=== PATIENT | female | born 1995 | race Two or more races ===

== ENCOUNTER 2018-07-28 20:40 | Inpatient (IN) | payer BC ==
[2018-07-28] MEDS ORDERED: DEXTROSE 5%-LACTATED RINGERS 500 ML IV ONE (21:00)
[2018-07-28] MEDS ORDERED: DEXTROSE 5%-LACTATED RINGERS 1,000 ML IV SCH (22:00)
[2018-07-28] MEDS ORDERED: ACETAMINOPHEN 325 MG TABLET (FP) ONE (22:44)
[2018-07-28] MEDS ORDERED: ACETAMINOPHEN 325 MG TABLET (FP) PO ONE (22:45)
[2018-07-29] MEDS ORDERED: ELECTROLYTE-148 SOLN 1,000 ML IV SCH ×2 (00:05→04:00)
[2018-07-29 00:35] LABS: BASO % 0.2 % (0-2.0); EOS % 0.2 % (0-4.5); HEMATOCRIT 35.8 % (32.4-45.2); HEMOGLOBIN 12.1 GM/dL (10.7-15.3); LYMPH % 11.9 % (8-40); MCH 29.1 pg (25.7-33.7); MCHC 33.9 g/dl (32.0-36.0); MEAN CELL VOLUME 85.7 fl (80-96); MONO % 3.7 % (3.8-10.2); PLATELET COUNT 159 K/MM3 (134-434); RBC 4.18 M/mm3 (3.60-5.2); RDW 13.8 % (11.6-15.6); WHITE BLOOD COUNT 13.6 K/mm3 (4.0-10.0)
[2018-07-29 00:47] LABS: INR 0.93 (0.83-1.09)
[2018-07-29] MEDS ORDERED: FENTANYL/BUPIVACAINE/NS/PF - PCEA - 50 ML DISP.SYRIN EP ONE (00:47)
[2018-07-29 00:50] LABS: ACTIVATED PTT 27.8 SECONDS (25.2-36.5)
[2018-07-29 00:55] LABS: ANION GAP 9 MMOL/L (8-16); BLOOD UREA NITROGEN 7 mg/dL (7-18); CALCIUM 8.6 mg/dL (8.5-10.1); CHLORIDE 107 mmol/L (98-107); CO2 20 mmol/L (21-32); CREATININE 0.4 mg/dL (0.55-1.3); GLUCOSE,RANDOM 109 mg/dL (74-106); POTASSIUM 4.1 mmol/L (3.5-5.1); SODIUM 136 mmol/L (136-145)
[2018-07-29] MEDS: FENTANYL/BUPIVACAINE/NS/PF - PCEA - 50 ML DISP.SYRIN EP SCH (01:00)
[2018-07-29] MEDS ORDERED: NALOXONE HCL 0.4 MG/ML VIAL IVPUSH PRN (02:11)
[2018-07-29 02:12] VITALS: BMI 34.2
[2018-07-29] MEDS ORDERED: DEXTROSE 5%-LACTATED RINGERS 1,000 ML IV SCH (04:00)
--- NOTE | 2018-07-29 04:01 | HP ---
Past Medical History - Admission Chief Complaint: Pain in labor History of Present Illness: 23 yo , @ 39 weeks gestation, admitted for labor pain. History Source: Patient Limitations to Obtaining History: No Limitations - Past Medical History ...: 1 ...Para: 0 ...Term: 0 ...: 0 ...Spon : 0 ...Induced : 0 ...Multiple Gestation: 0 ...LMP: 10/17/17 ... Weeks Gestation by Dates: 40.5 ...EDC by Dates: 07/24/18 ...EDC by Sono: 08/02/18 - Past Surgical History Past Surgical History: Yes: None Hx Myomectomy: No Hx Transabdominal Cerclage: No - Smoking History Smoking history: Never smoked - Alcohol/Substance Use Hx Alcohol Use: No - Social History Usual Living Arrangement: Yes: With Spouse History of Recent Travel: No Home Medications - Allergies Allergies/Adverse Reactions: Allergies Allergy/AdvReac Type Severity Reaction Status Date / Time No Known Drug Allergies Allergy Verified 07/28/18 22:19 Family Disease History - Family Disease History Family History: Unremarkable Review of Systems - Review of Systems Constitutional: reports: No Symptoms Eyes: reports: No Symptoms HENT: reports: No Symptoms Neck: reports: No Symptoms Cardiovascular: reports: No Symptoms Respiratory: reports: No Symptoms Gastrointestinal: reports: No Symptoms Genitourinary: reports: Pain Breasts: reports: No Symptoms Reported Musculoskeletal: reports: No Symptoms Integumentary: reports: No Symptoms Neurological: reports: No Symptoms Endocrine: reports: No Symptoms Hematology/Lymphatic: reports: No Symptoms Psychiatric: reports: No Symptoms Pain Intensity: 6 Physical Exam - Maternity Vital Signs: Vital Signs Temperature 98.8 F 07/29/18 00:05 Pulse Rate 74 07/29/18 02:15 Respiratory Rate 18 07/29/18 02:15 Blood Pressure 125/65 07/29/18 02:15 O2 Sat by Pulse Oximetry (%) 97 07/29/18 02:15 Constitutional: Yes: Well Nourished Eyes: Yes: Conjunctiva Clear HENT: Yes: Atraumatic Neck: Yes: Supple Cardiovascular: Yes: Regular Rate and Rhythm Lungs: Clear to auscultation - Abdominal Exam/OB Number of Fetuses: Single Presentation: Vertex - Vaginal Exam/OB Presentation: Vertex/Position Station: -2 - Physical Exam Musculoskeletal: Yes: WNL Extremities: Yes: WNL ...Motor Strength: WNL Psychiatric: Yes: Alert, Oriented - Labs Lab Results: CBC, BMP 07/29/18 00:15 07/29/18 00:15 Problem List - Problems (1) Pain during labor Code(s): O99.89 - OTH DISEASES AND CONDITIONS COMPL PREG/CHLDBRTH; R52 - PAIN, UNSPECIFIED Assessment/Plan Active labor Admit to L&D Analgesia as needed Anticipate
[2018-07-29] MEDS ORDERED: LIDOCAINE HCL 1% PRESERVATIVE FREE - 30ML VIAL ONE (04:12)
[2018-07-29] MEDS ORDERED: OXYTOCIN 20 UNITS in 0.9% NS 20 UNIT/1,000 ML INFUS.BAG IV ONE (04:12)
[2018-07-29] MEDS: OXYTOCIN 20 UNITS in 0.9% NS 20 UNIT/1,000 ML INFUS.BAG IV SCH ×2 (05:15→09:00)
[2018-07-29] MEDS ORDERED: METHYLERGONOVINE MALEATE 0.2 MG/1 ML AMP IM PRN (05:27)
[2018-07-29] MEDS ORDERED: BENZOCAINE 28 GM HEMORRHOIDAL OINTMENT TP PRN (05:27)
[2018-07-29] MEDS ORDERED: BISACODYL 10 MG SUPP.RECT RC PRN (05:27)
[2018-07-29] MEDS ORDERED: BENZOCAINE 20% 57 GM BOTTLE TP PRN (05:27)
[2018-07-29] MEDS ORDERED: WITCH HAZEL 50% (TUCKS) 40 PAD/JAR PAD TP PRN (05:27)
--- NOTE | 2018-07-29 05:32 | PN ---
Delivery - Delivery Vaginal Delivery: Spontaneous Type of Anesthesia: Epidural Episiotomy/Laceration: 3rd degree EBL (cc): 300 Delivery, Single - [place] Feeding Plan Initial Plan: Elected not to breastfeed exclusively throughout hospitalization Remarks - Remarks Remarks: Normal spontaneous vaginal delivery of a live infant girl over third degree laceration. Nose / Oropharynx suctioned @ perineum. Nuchal cord x 2 clamped and cut. Baby handed to nurse. Placenta expelled spontaneously intact. Laceration repaired with 2.0 chromic. Mother in stable condition.
[2018-07-29] MEDS ORDERED: TUBERCULIN PPD 5 TU/0.1ML SYRINGE (IN PATIENT USE ONLY) ID ONE (09:00)
[2018-07-29] MEDS: FERROUS SO4 325 MG TABLET (FP) PO SCH ×2 (10:37→22:56)
[2018-07-29] MEDS: PRENATAL VITAMINS W/ FOLIC ACID TABLET (FP) PO SCH (10:37)
[2018-07-29] MEDS: IBUPROFEN 600 MG TABLET (FP) PO PRN (16:32)
[2018-07-29] MEDS: ACETAMINOPHEN 325 MG TABLET (FP) PO PRN (16:33)
[2018-07-30] MEDS: ACETAMINOPHEN 325 MG TABLET (FP) PO PRN ×4 (01:57→21:31)
[2018-07-30] MEDS: IBUPROFEN 600 MG TABLET (FP) PO PRN ×4 (01:58→21:31)
--- NOTE | 2018-07-30 07:51 | PN ---
Post Progress Note - Subjective Subjective: 23 yo Para 1 , status post vaginal delivery, seen and evaluated. Doing well. Post Day: 1 Type of Delivery: Vital Signs: Vital Signs Temperature 98.0 F 07/30/18 06:00 Pulse Rate 78 07/30/18 06:00 Respiratory Rate 20 07/30/18 06:00 Blood Pressure 116/68 07/30/18 06:00 O2 Sat by Pulse Oximetry (%) 100 07/29/18 06:18 Breast Exam: Yes: Soft Uterus: Yes: Fundus Firm Abdomen/GI: Yes: Abdomen soft, Tolerating PO Lochia: Yes: Rubra Lochia, amount: Small Extremities: Yes: Calves non-tender Perineum: Yes: Intact Activity: Ambulating - Labs Labs: CBC WBC 13.6 K/mm3 (4.0-10.0) H 07/29/18 00:15 RBC 4.18 M/mm3 (3.60-5.2) 07/29/18 00:15 Hgb 12.1 GM/dL (10.7-15.3) 07/29/18 00:15 Hct 35.8 % (32.4-45.2) 07/29/18 00:15 MCV 85.7 fl (80-96) 07/29/18 00:15 MCH 29.1 pg (25.7-33.7) 07/29/18 00:15 MCHC 33.9 g/dl (32.0-36.0) 07/29/18 00:15 RDW 13.8 % (11.6-15.6) 07/29/18 00:15 Plt Count 159 K/MM3 (134-434) 07/29/18 00:15 MPV 10.0 fl (7.5-11.1) 07/29/18 00:15 Absolute Neuts (auto) 11.4 K/mm3 (1.5-8.0) H 07/29/18 00:15 Neutrophils % 84.0 % (42.8-82.8) H 07/29/18 00:15 Lymphocytes % 11.9 % (8-40) 07/29/18 00:15 Monocytes % 3.7 % (3.8-10.2) L 07/29/18 00:15 Eosinophils % 0.2 % (0-4.5) 07/29/18 00:15 Basophils % 0.2 % (0-2.0) 07/29/18 00:15 Nucleated RBC % 0 % (0-0) 07/29/18 00:15 Problem List - Problems (1) Pain during labor Code(s): O99.89 - OTH DISEASES AND CONDITIONS COMPL PREG/CHLDBRTH; R52 - PAIN, UNSPECIFIED Assessment/Plan Status post vaginal delivery Stable Continue routine care
[2018-07-30 09:24] LABS: BASO % 0.1 % (0-2.0); EOS % 1.1 % (0-4.5); HEMATOCRIT 36.2 % (32.4-45.2); HEMOGLOBIN 12.2 GM/dL (10.7-15.3); LYMPH % 15.1 % (8-40); MCH 29.1 pg (25.7-33.7); MCHC 33.7 g/dl (32.0-36.0); MEAN CELL VOLUME 86.3 fl (80-96); MEAN PLT VOLUME 10.3 fl (7.5-11.1); MONO % 2.6 % (3.8-10.2); NEUT % 81.1 % (42.8-82.8); PLATELET COUNT 182 K/MM3 (134-434); RBC 4.19 M/mm3 (3.60-5.2); RDW 14.2 % (11.6-15.6); WHITE BLOOD COUNT 14.5 K/mm3 (4.0-10.0)
[2018-07-30] MEDS: PRENATAL VITAMINS W/ FOLIC ACID TABLET (FP) PO SCH (10:00)
[2018-07-30] MEDS ORDERED: DIPHTH,PERTUSS(ACELL),TET 0.5 ML DISP.SYRIN IM ONE (10:00)
[2018-07-30] MEDS ORDERED: FLU VACCINE QUAD 60 MCG/0.5 ML (MDV 18-19) IM ONE (10:00)
[2018-07-30] MEDS: FERROUS SO4 325 MG TABLET (FP) PO SCH ×2 (10:00→21:30)
[2018-07-30] MEDS ORDERED: SENNOSIDES/DOCUSATE COMBO (SENNA PLUS) TABLET (UD) PO PRN (22:00)
[2018-07-30] MEDS: FENTANYL/BUPIVACAINE/NS/PF - PCEA - 50 ML DISP.SYRIN EP SCH (22:50)
[2018-07-31] MEDS: FERROUS SO4 325 MG TABLET (FP) PO SCH (09:48)
[2018-07-31] MEDS: PRENATAL VITAMINS W/ FOLIC ACID TABLET (FP) PO SCH (09:48)
[2018-07-31 10:34] VITALS: BP 109/70; PULSE 90; TEMP 98.1
[2018-07-31] MEDS ORDERED: FLUCONAZOLE 150 MG TABLET PO ONE (13:05)
[2018-07-31] MEDS: ACETAMINOPHEN 325 MG TABLET (FP) PO PRN (16:15)
[2018-07-31] MEDS: IBUPROFEN 600 MG TABLET (FP) PO PRN (16:16)
== END 2018-07-31 18:00 | disposition home or self-care (01) | DRG 768 ==
LOC: JDEL 20:40 → JLDR 07-29 00:05 → J3W 07-29 08:13
PROVIDERS: ADMIT Obstetrics & Gynecology; ATTEND Obstetrics & Gynecology
PROC: 10E0XZZ Delivery of Products of Conception, External Approach (ICD-10-PCS; principal; 2018-07-29)
PROC: 0DQR0ZZ Repair Anal Sphincter, Open Approach (ICD-10-PCS; 2018-07-29)
PROC: 0W8NXZZ Division of Female Perineum, External Approach (ICD-10-PCS; 2018-07-29)
DX: O70.20 Third degree perineal laceration during delivery, unspecified (principal); Z37.0 Single live birth; Z3A.39 39 weeks gestation of pregnancy
CPT/HCPCS: 36415; 59025; 59409; 80048; 85025; 85610; 85730; 86593; 86850; 86900; 86901; 90686; 90715; G0008